=== PATIENT | male | born 1990 | race African-American/Black ===

== ENCOUNTER 2018-09-04 16:11 | Emergency (ER) | payer OTHER ==
[~2018-09-04] VITALS: Ht 182.9 cm; Wt 79.5 kg
[2018-09-04] MEDS ORDERED: CYCL-1 PO (18:09)
[2018-09-04] MEDS ORDERED: ketorolac tromethamine 15mg/ml inj. IM ONE (18:10)
[2018-09-04 18:28] VITALS: BP 124/73
== END 2018-09-04 18:29 | disposition home or self-care (01) ==
LOC: ER 16:12
DX: M25.511 Pain in right shoulder (principal); V43.32XA Unspecified car occupant injured in collision with other type car in nontraffic accident, initial encounter; Y93.89 Activity, other specified; Y92.481 Parking lot as the place of occurrence of the external cause; Y99.8 Other external cause status
CPT/HCPCS: 73030; 96372; 99283; J1885

== ENCOUNTER 2020-02-12 05:39 | Day surgery (SDC) | payer MEDICAID ==
[2020-02-05 14:09] LABS: BASOPHILS % (AUTO) 0.5 % (0-1); EOSINOPHILS # (AUTO) 0.2 X10'3 (0-0.9); LYMPHOCYTES # (AUTO) 2.2 X10'3 (1.1-4.8); LYMPHOCYTES % (AUTO) 27.2 % (21-51); MEAN CORPUSCULAR HEMOGLOBIN 30.6 PG (27.0-31.0); MEAN CORPUSCULAR HGB CONC 33.1 g/dL (33.0-36.5); MEAN CORPUSCULAR VOLUME 92.4 FL (78-98); MEAN PLATELET VOLUME 7.6 FL (7.4-10.4); MONOCYTES # (AUTO) 0.8 X10'3 (0-0.9); MONOCYTES % (AUTO) 9.4 % (2-12); NEUTROPHILS # (AUTO) 4.8 X10'3 (1.8-7.7); NEUTROPHILS % (AUTO) 59.9 % (42-75); PRE OP HEMATOCRIT 47.4 % (42.0-52.0); PRE OP HEMOGLOBIN 15.7 g/dL (14.0-17.9); PRE OP PLATELET COUNT 210 X10'3 (140-440); RED BLOOD COUNT 5.13 X10'6 (4.70-6.10); RED CELL DISTRIBUTION WIDTH 14.3 % (11.5-14.5)
[2020-02-05 14:11] LABS: CLARITY,URINE CLEAR (Clear); COLOR,URINE YELLOW (Yellow); GLUCOSE, URINE NEGATIVE (Neg); KETONES,URINE NEGATIVE (Neg); LEUKOCYTE ESTERASE ,URINE NEGATIVE (Neg); NITRITES, URINE NEGATIVE (Neg); OCCULT BLOOD,URINE NEGATIVE (Neg); PH,URINE 5.5 (4.8-8.0); PROTEIN,URINE NEGATIVE (Neg); UA COLLECTION TYPE CLN CATCH MIDSTREAM; UROBILINOGEN,URINE 0.2 E.U/dL (0.2-1.0)
[2020-02-05 14:23] LABS: ALBUMIN/GLOBULIN RATIO 1.1 (1.1-1.5); ALKALINE PHOSPHATASE 76 IU/L (46-116); BLOOD UREA NITROGEN 13 MG/DL (7-18); BUN/CREATININE RATIO 10.7 (5.4-32.0); CALCIUM 9.1 MG/DL (8.5-10.1); CHLORIDE 107 MMOL/L (99-107); CREATININE 1.21 MG/DL (0.60-1.10); PRE OP ALT 30 U/L (30-65); PRE OP ANION GAP 6 (8-16); PRE OP AST 17 U/L (10-37); PRE OP BILIRUB, TOTAL 0.3 MG/DL (0.0-1.0); PRE OP GLUCOSE 101 MG/DL (70-104); PRE OP POTASSIUM 4.1 MMOL/L (3.4-5.1); PRE OP SODIUM 144 MMOL/L (135-145); TOTAL CARBON DIOXIDE 31.1 MMOL/L (24-32); TOTAL PROTEIN 7.8 G/DL (6.4-8.2); eGFR 85 ML/MIN
[2020-02-12] VITALS (9 sets, daily range): BP systolic 113–138; BP diastolic 70–89
[~2020-02-12] VITALS: Ht 182.9 cm; Wt 98.4 kg
[~2020-02-12 05:39] MED LIST: NO HOME MEDS; ceFAZolin 2gm in dextrose, iso 50 ML IV ONE; famotidine 20mg tablet PO ONE; ringers solution, lacted 1,000 ML IV SCH; vancomycin 1,500 MG in NS 300ml IV soln IV ONE
[2020-02-12] MEDS ORDERED: BUPIVAcaine/PF 2.5 mg/ml (0.25%) 30ml vial ONE (06:48)
[2020-02-12] MEDS ORDERED: midazolam 2 mg/2 ml injection ONE (07:04)
[2020-02-12] MEDS ORDERED: fentaNYL/PF 50MCG/1 ML 2ML syringe ONE (07:04)
[2020-02-12] MEDS ORDERED: ondansetron/PF 4mg/2ml inj ONE (07:05)
[2020-02-12] MEDS ORDERED: dexamethasone sod phosphate 4mg/ml inj. ONE (07:05)
[2020-02-12] MEDS ORDERED: LIDOcaine 2% (20mg/ml) 5ml vial ONE (07:05)
[2020-02-12] MEDS ORDERED: propofol inj 20 ML IV ONE (07:05)
[2020-02-12] MEDS ORDERED: ROPIVAcaine 0.5% (5mg/ml) 30ml vial ONE (07:05)
[2020-02-12] MEDS ORDERED: sevoflurane 250ml liquid IH ONE (07:08)
[2020-02-12] MEDS ORDERED: ringers solution, lacted 1,000 ML IV SCH (07:41)
[2020-02-12] MEDS ORDERED: fentaNYL/PF 50MCG/1 ML 2ML syringe IV PRN ×2 (07:45)
[2020-02-12] MEDS ORDERED: morphine 2 MG/ML inj. syringe IV PRN (07:45)
[2020-02-12] MEDS ORDERED: morphine 4 MG/ML inj SYRINge IV PRN (07:45)
[2020-02-12] MEDS ORDERED: labetalol 20mg/4ml (5mg/ml) syringe IV PRN (07:45)
[2020-02-12] MEDS ORDERED: ondansetron/PF 4mg/2ml inj IV PRN (07:45)
[2020-02-12] MEDS ORDERED: hydrALAZINE 20mg/ml inj. IV PRN (07:45)
[2020-02-12] MEDS ORDERED: ketorolac trometh. 30mg/ml inj. ONE (08:11)
--- NOTE | 2020-02-12 08:40 | NUR ---
Received from OR via , accompanied by Anesthesiologist DR KNUTSON and report given by Anesthesiolgist. AWAKENS TO VOICE. VITALS STABLE. DRESSING DI. ROSALIA PAIN. FINGERS WARM AND PINK. RUE IN SIMPLE SLING.
[2020-02-12] MEDS ORDERED: HYDROcodone/acetaminophen 10/325mg tab PO PRN (09:00)
--- NOTE | 2020-02-12 10:10 | NUR ---
AWAKE AND ORIENTED. VITALS STABLE. DRESSING DI. ROSALIA PAIN. HOME WITH FAMILY AT THIS TIME/
== END 2020-02-12 10:10 | disposition home or self-care (01) ==
LOC: PAS 05:39
PROVIDERS: ATTEND Orthopaedic Surgery
DX: M75.41 Impingement syndrome of right shoulder (principal); M75.01 Adhesive capsulitis of right shoulder; F43.10 Post-traumatic stress disorder, unspecified; G47.00 Insomnia, unspecified; G89.18 Other acute postprocedural pain; Z79.899 Other long term (current) drug therapy; Z11.59 Encounter for screening for other viral diseases; Z72.89 Other problems related to lifestyle; Z98.890 Other specified postprocedural states
CPT/HCPCS: 29823; 36415; 64415; 76942; 80053; 81003; 82948; 85025; 87635; J1100; J1885; J2001; J2250; J2405; J2704; J3010; J3370; J3490; J7040; J7120; A4565; A4618; A6449; A7000; J2795